=== PATIENT | female | born 1990 | race Caucasian/White ===

== ENCOUNTER 2021-02-12 21:31 | Emergency (ER) | payer MEDICAID, SELFPAY ==
[2021-02-12 22:21] VITALS: BP 147/109; PULSE 134; RESP 20; TEMP 37.2; O2SAT 98; BMI 32.5
[2021-02-13 00:52] LABS: Basophils Absolute Auto 0.1 X10*3/uL (0.0-0.2); Basophils Percent Auto 0.6 % (0-2); Eosinophils Absolute Auto 0.1 X10*3/uL (0.0-0.4); Eosinophils Percent Auto 0.6 % (0-4); Hemoglobin 14.8 g/dl (12.0-16.0); Imm Gran Abs Auto 0.08 X10*3/uL (0.00-0.03); Imm Gran Pct Auto 0.4 % (0.0-0.4); Lymphocytes Absolute Auto 4.1 X10*3/uL (1.2-4.9); Lymphocytes Percent Auto 22.8 % (20-40); MANUAL DIFF FLAG NO; Mean Corpuscular HGB Conc 34.4 g/dl (31.0-35.0); Mean Corpuscular Hemoglobin 29.5 pg (27.0-33.0); Mean Corpuscular Volume 85.7 fL (80-98); Mean Platelet Volume 10.4 fL (9.4-12.3); Monocytes Absolute Auto 1.3 X10*3/uL (0.1-1.2); Monocytes Percent Auto 7.3 % (2-11); Neutrophils Absolute Auto 12.3 X10*3/uL (2.0-8.3); Neutrophils Percent Auto 68.3 % (45-73); Platelet Count 396 X10*3/uL (160-400); Red Blood Count 5.02 X10*6/uL (4.20-5.50); Red Cell Distribution Width 13.4 % (11.0-16.0)
[2021-02-13 01:07] LABS: Anion Gap 16 (12-20); Blood Urea Nitrogen 10 mg/dL (9-16); Calcium 10.2 mg/dL (8.4-10.2); Carbon Dioxide 22 mmol/L (22-29); Chloride 104 mmol/L (96-108); Estimated Glomerular Filt Rate > 60; Glucose Random 105 mg/dL (60-115); Magnesium 2.1 mg/dL (1.6-2.6); Potassium 3.5 mmol/L (3.3-5.1); Sodium 138 mmol/L (135-145)
[2021-02-13 01:27] LABS: C Reactive Protein 1.25 mg/dL (< or = 0.50)
[2021-02-13 01:58] LABS: Erythrocyte Sedimentation Rate 16 MM/HR (0-20)
--- NOTE | 2021-02-13 02:39 | ED_ITS ---
HPI - General Adult General Chief complaint: General Medical Stated complaint: Facial numbness Time Seen by Provider: 02/13/21 01:11 Source: patient Mode of arrival: ambulatory History of Present Illness HPI narrative: This is a 30-year-old female with past medical history of prior alcohol use and dependence but has been sober for 1 year and presents with 1 week of reported numbness to the medial aspect of her left eyebrow that runs along the left aspect of her nose and onto her cheek down to the left upper lip. This is not been associated with any fevers, chills, headaches, dizziness, ear pain, sinus pain, eye tearing, visual blurriness, pain on eye movement with the left eye, runny nose, dental pain, sore throat, and patient denies any history hiking or possible tick exposure. She denies any pain or sensitivity over the left temporal area, left TMJ pain or clicking. In addition, patient denies noting any facial drooping or extremity numbness/tingling/weakness. Patient states that she is currently on Xanax and Prozac for significant depression and anxiety but denies any other alcohol use, drug use. Related Data Allergies Allergy/AdvReac Type Severity Reaction Status Date / Time No Known Allergies Allergy Unverified 01/16/20 15:53 Review of Systems Review of Systems: Pertinent positives and negatives as stated in HPI 10 point review of systems is otherwise negative. PMFSH Past Medical History Source: nursing notes reviewed Social History Social History Alcohol intake: never Patient Tobacco Use Status: Never used Tobacco Advance Directives: No Advance Directives Information Provided: Yes Physical Exam Vital Signs: Vital Signs: Last Vital Signs Temp 98.9 F 02/12/21 22: Pulse 134 H 02/12/21 22:21 Resp 20 02/12/21 22: BP 147/109 H 02/12/21 22: Pulse Ox 98 02/12/21 22:21 Body Mass Index 32.5 VITAL SIGNS: Reviewed. GENERAL: Well developed, well nourished, in no acute distress. HEAD: Normocephalic/atraumatic, no sinus pain on palpation EYES: PERRLA, EOMI intact without pain, no nystagmus, no conjunctival injection EARS: Ext canals without abnormality, TMs non-bulging and non-erythematous, no tragus or ear pain on tugging NOSE: Nares patent bilateral, no rhinorrhea, erythema, swelling OROPHARYNX: no oral lesions noted, posterior pharynx clear and non-erythematous without noted tonsillar enlargement/erythema/exudates, no dental caries noted NECK: Supple, no adenopathy LUNGS: Normal breath sounds. No adventitious sounds or accessory muscle use. SpO 2<98> CARDIOVASCULAR: Regular rate and rhythm without noted murmurs ABDOMEN: Soft, non-tender, non-distended with bowel sounds. SKIN: Inspection of the skin reveals no rashes NEUROLOGIC: Alert and oriented x 4. Strength and sensation to light touch were grossly intact x 4, no facial asymmetry, sensation is intact but patient's decreased sensation is not and typical V2/V1 distribution appears to be potentially more specific to a nasal ciliary nerve distribution or something of that nature. Course Course Course Narrative: Is a 30-year-old female with history and clinical presentation of superficial sensation decrease in an atypical pattern, no suspicion for shingles, infection (sinus), Duval's palsy, orbital cellulitis, giant cell arteritis, and on review of all investigations there is a noted leukocytosis without a left shift but patient has had recent ACL injury to the right knee without evidence of erythema or induration or other signs of infection that may be attributable to the leukocytosis. ESR is within normal limits and the CRP is mildly elevated at 1.25, however this is of unknown significance. All results and findings were discussed with her at bedside and she was instructed to follow-up with her primary care provider for further outpatient workup and evaluation. Medical Decision Making Lab Data Result diagrams: 02/13/21 00:46 02/13/21 00:46 Labs: Lab Results 02/13/21 02/13/21 02/13/21 Range/Units 00:46 00:46 00:46 WBC 18.0 H (4.8-10.8) X10*3/uL RBC 5.02 (4.20-5.50) X10*6/uL Hgb 14.8 (12.0-16.0) g/dl Hct 43.0 (37-47) % MCV 85.7 (80-98) fL MCH 29.5 (27.0-33.0) pg MCHC 34.4 (31.0-35.0) g/dl RDW 13.4 (11.0-16.0) % Plt Count 396 (160-400) X10*3/uL MPV 10.4 (9.4-12.3) fL Immature Gran % (Auto) 0.4 (0.0-0.4) % Neut % (Auto) 68.3 (45-73) % Lymph % (Auto) 22.8 (20-40) % [place] % (Auto) 7.3 (2-11) % Eos % (Auto) 0.6 (0-4) % Baso % (Auto) 0.6 (0-2) % Lymph # (Auto) 4.1 (1.2-4.9) X10*3/uL [place] # (Auto) 1.3 H (0.1-1.2) X10*3/uL Eos # (Auto) 0.1 (0.0-0.4) X10*3/uL Baso # (Auto) 0.1 (0.0-0.2) X10*3/uL Abs Immat Gran (auto) 0.08 H (0.00-0.03) X10*3/uL Absolute Neuts (auto) 12.3 H (2.0-8.3) X10*3/uL Absolute Nucleated RBC 0.000 (0.0-0.012) X10*3/uL Nucleated RBC % (auto) 0.0 (0.0-0.2) /100WBC ESR 16 (0-20) MM/HR Sodium 138 (135-145) mmol/L Potassium 3.5 (3.3-5.1) mmol/L Chloride 104 (96-108) mmol/L Carbon Dioxide 22 (22-29) mmol/L Anion Gap 16 (12-20) BUN 10 (9-16) mg/dL Creatinine 0.78 (0.5-1.4) mg/dL Estim Creat Clear Calc 110.0 Estimated GFR > 60 Random Glucose 105 (60-115) mg/dL Calcium 10.2 (8.4-10.2) mg/dL Magnesium 2.1 (1.6-2.6) mg/dL C-Reactive Protein 1.25 H (< or = 0.50) mg/dL Discharge Plan Discharge Clinical Impression: Left facial numbness Patient Disposition: Home, Self-Care Instructions: Paresthesia (ED) Additional Instructions: 1. Resume all home medications as prescribed. 2. Recommend following up with your primary care provider on Monday for re-evaluation and further outpatient management and evaluation. Referrals: Deborah Iverson MD [Primary Care Provider] - 2 days
[2021-02-13 02:46] VITALS: BP 155/72; PULSE 101; RESP 18; TEMP 36.9; O2SAT 99
[2021-02-13 03:41] LABS: HCG Quantitative < 2 mIU/mL
== END 2021-02-13 02:57 | disposition home or self-care (01) ==
PROVIDERS: Emergency Provider Student in an Organized Health Care Education/Training Program; PCP Family Medicine
DX: R20.0 Anesthesia of skin (principal); Z79.899 Other long term (current) drug therapy
CPT/HCPCS: 36415; 80048; 83735; 84702; 85025; 85652; 86140; 99283; 99284